=== PATIENT | female | born 1930 | race Caucasian/White ===

== ENCOUNTER 2016-10-12 07:25 | Day surgery (SDC) | payer OTHER ==
[~2016-10-12] VITALS: Ht 165.1 cm; Wt 70.2 kg
[~2016-10-12 07:25] MED LIST: ALEVE220 MG PO; ASPIR 8181 M1 PO; ASPIR-LOW81 MG PO; ATORVASTATIN CA80 MG PO; BRILINTA90 MG PO; CEFUROXIME500 MG PO; COZAAR25 MG PO; FLONASE16 G1 BOTH NARES; LEVOTHYROXINE75 MCG PO; LEVOTHYROXINE88 MCG PO; LISINOPRIL10 MG PO; LISINOPRIL20 MG PO; LISINOPRIL5 MG PO; LOPRESSOR50 MG PO; LOSARTAN POTASS25 MG PO; METFORMIN HCL500 MG PO; METOPROLOL TART50 MG PO; NITROSTAT0.4 MG SL; OXYBUTYNIN CHLOR5 MG PO; PRAVACHOL40 MG PO; PREDNISONE20 MG PO; PRILOSEC OTC20 MG PO; STOOL SOFTENER100 MG PO; SYNTHROID75 MCG PO; TIZANIDINE HCL2 MG PO; TOPROL XL200 MG PO; TRIAMTERENE/HC1 EACH PO; TYLENOL EXTRA500 MG PO; ZITHROMAX Z-PA250 MG PO
[2016-10-12 07:56] LABS: POINT-OF-CARE METER ID UU14174212
[2016-10-12 08:36] VITALS: BP 204/92
[2016-10-12 11:13] LABS: POINT-OF-CARE METER ID UU13113675
[2016-10-12 11:40] VITALS: BP 161/74
[2016-10-12 12:14] VITALS: BP 159/68
== END 2016-10-12 12:28 | disposition home or self-care (01) ==
LOC: SDC 07:25
PROVIDERS: Internal Medicine
PROC: 08QF3ZZ Repair Left Retina, Percutaneous Approach (ICD-10-PCS; principal; 2016-10-12)
PROC: 08NF3ZZ Release Left Retina, Percutaneous Approach (ICD-10-PCS; principal; 2016-10-12)
PROC: 08T53ZZ Resection of Left Vitreous, Percutaneous Approach (ICD-10-PCS; principal; 2016-10-12)
PROC: 3E0C33Z Introduction of Anti-inflammatory into Eye, Percutaneous Approach (ICD-10-PCS; principal; 2016-10-12)
DX: H35.342 Macular cyst, hole, or pseudohole, left eye (principal); H33.312 Horseshoe tear of retina without detachment, left eye; I10 Essential (primary) hypertension; E03.9 Hypothyroidism, unspecified; E78.00 Pure hypercholesterolemia, unspecified; E11.9 Type 2 diabetes mellitus without complications; Z86.73 Personal history of transient ischemic attack (TIA), and cerebral infarction without residual deficits; Z82.49 Family history of ischemic heart disease and other diseases of the circulatory system; Z82.62 Family history of osteoporosis; Z79.82 Long term (current) use of aspirin; Z79.899 Other long term (current) drug therapy; Z88.2 Allergy status to sulfonamides
CPT/HCPCS: 82948; J0360; J0690; J2405; J3300